=== PATIENT | male | born 1930 | race Caucasian/White ===

== ENCOUNTER 2018-02-05 23:03 | Emergency (ER) | payer MEDICARE, OTHER ==
[~2018-02-05] VITALS: Ht 160 cm; Wt 97.5 kg
--- NOTE | 2018-02-05 23:05 | NUR ---
87/M BIBA W C/O GENERALIZED WEAKNESS. PT DENIES FALLING STATES " I FELT WEAK AND ASSISTED MYSELF TO FLOOR WITH MY KNEE". +PMSC TO BLE WITH MODERATE WEAKNESS NOTED. DENIES ANY PAIN AT THIS TIME, DENIES LOC/HEAD TRAUMA/INJURY. GCS15, AOX4. 176 BS ON SCENE. PMH: NEUROPATHY, HTN, DM
--- NOTE | 2018-02-05 23:06 | NUR ---
PT SHARYN SALAZARS. TAKEN TO BED 4
[2018-02-05 23:08] VITALS: BP 145/90
--- NOTE | 2018-02-05 23:11 | NUR ---
X-Ray at bedside.
[2018-02-05 23:51] LABS: ALBUMIN 3.4 g/dL (3.4-5.0); ASPARTATE AMINOTRANSFERASE 14 U/L (15-37); CHLORIDE 101 mmol/L (98-107); CREATININE 1.4 mg/dL (0.7-1.3); GLUCOSE 194 mg/dL (74-106); SODIUM SERUM 140 mmol/L (136-145); TOTAL BILIRUBIN 0.4 mg/dL (0.0-1.0); UREA NITROGEN, BLOOD 25 mg/dL (7-18)
[2018-02-05 23:53] LABS: HEMATOCRIT 47.4 % (36-52); MEAN CORPUSCULAR HEMOGLOBIN 30 pg (27-31); MEAN CORPUSCULAR HGB CONC 34 g/dL (33-37); MEAN CORPUSCULAR VOLUME 90 fL (80-94); PLATELET COUNT (AUTO) 192 K/uL (140-450); RED BLOOD CELL COUNT(AUTO) 5.26 MIL/uL (4.20-6.10); RED CELL DISTRIBUTION WIDTH 12.1 % (11.6-13.7); WHITE BLOOD COUNT (AUTO) 13.3 K/uL (4.8-10.8)
[2018-02-05 23:59] LABS: PROTHROMBIN TIME 10.8 secs (10.8-13.4)
[2018-02-06 00:03] LABS: EOSINOPHILS % (MANUAL) 2 % (0-4); LYMPHOCYTES % (MANUAL) 13 % (20-46); MONOCYTES % (MANUAL) 10 % (5-12)
--- NOTE | 2018-02-06 00:54 | NUR ---
Dr. Mason evaluating patient.
--- NOTE | 2018-02-06 01:11 | NUR ---
Patient appears to be resting comfortably in bed. Vital Signs within normal limits. Respirations even and unlabored.
--- NOTE | 2018-02-06 01:44 | NUR ---
PT TAKEN TO CT
--- NOTE | 2018-02-06 02:04 | NUR ---
pt back from CT
--- NOTE | 2018-02-06 02:30 | NUR ---
Patient appears to be resting comfortably in bed. Vital Signs within normal limits. Respirations even and unlabored.
--- NOTE | 2018-02-06 03:47 | NUR ---
Patient to be transferred to [facility]. Is being transferred due to INSURANCE REQUEST. Receiving facility has accepting physician and available space. ER physician has signed transfer form. Patient or responsible libertarian has agreed to transfer and signed form. Patient belongings inventoried and will be sent with patient. Copy of nursing notes, lab reports, EKG, Physicians Orders and X-rays to be sent with patient. Report called to LAILA DUNAWAY at receiving facility. NAYE SIMPSON PICKED UP PT.
[2018-02-06 03:48] VITALS: BP 121/66
--- NOTE | 2018-02-06 03:54 | NUR ---
PT TAKEN BY [facility] TRANSPORT TO [facility]
== END 2018-02-06 03:54 | disposition short-term general hospital (02) ==
LOC: MED 23:03
DX: R53.1 Weakness (principal); I10 Essential (primary) hypertension; E11.40 Type 2 diabetes mellitus with diabetic neuropathy, unspecified
CPT/HCPCS: 36415; 70450; 71045; 80053; 82948; 83880; 84484; 85025; 85610; 85730; 93005; 99285; C1758; Q0092; 81002